=== PATIENT | female | born 1995 | race Caucasian/White ===

== ENCOUNTER 2022-04-30 21:46 | Emergency (ER) | payer BC ==
[~2022-04-30] VITALS: Ht 160 cm; Wt 83.0 kg
[2022-04-30 21:49] VITALS: BP_SYST 146
--- NOTE | 2022-04-30 21:52 | NUR ---
PATIENT ZOYA FROM HOME FOR ABDOMINAL PAIN X 1 DAY, SEEN AT [facility] YESTERDAY AND DISCHARGED WITH NO DIAGNOSIS. STATES THIS HAPPENS WHEN SHE'S ON HER PERIOD (LMP 04/29), HAS A HISTORY OF ENDOMETRIOSIS. NO N/V/D.
--- NOTE | 2022-04-30 21:53 | NUR ---
PATIENT PLACED IN WAITING ROOM WITHOUT ANY SIGNS OF DISTRESS OR ISSUES.
--- NOTE | 2022-04-30 21:55 | NUR ---
PATIENT SEEN AMBULATING WITHOUT DIFFICULTY IN WAITING ROOM.
[2022-04-30 22:29] LABS: BASOPHILS % (AUTO) 0.1 % (0.0-2.0); HEMATOCRIT 34.7 % (36-48); HEMOGLOBIN 11.9 g/dL (12.0-16.0); LYMPHOCYTES % (AUTO) 8.4 % (20.5-51.5); MEAN CORPUSCULAR HEMOGLOBIN 26 pg (27-31); MEAN CORPUSCULAR HGB CONC 34 % (32-36); MEAN CORPUSCULAR VOLUME 76 fL (79.0-98.0); MONOCYTES # (AUTO) 0.2 K/uL (0.0-1.0); MONOCYTES % (AUTO) 1.7 % (1.7-9.3); NEUTROPHILS # (AUTO) 10.7 K/uL (1.8-7.7); NEUTROPHILS % (AUTO) 89.8 % (40.0-70.0); PLATELET COUNT (AUTO) 416 K/uL (130-430); RED CELL DISTRIBUTION WIDTH 15.3 % (9.0-15.0); WHITE BLOOD COUNT (AUTO) 11.9 K/uL (4.8-10.8)
[2022-04-30 22:40] LABS: CALCIUM 9.6 mg/dL (8.4-11.0); CREATININE 0.91 mg/dL (0.55-1.30); POTASSIUM 3.4 mmol/L (3.5-5.1)
[2022-04-30 22:50] LABS: ALBUMIN 3.7 g/dL (3.4-4.8); TOTAL BILIRUBIN 0.2 mg/dL (0.0-1.0)
[2022-05-01] MEDS ORDERED: MORPHINE 4 MG INJ. 4 MG/ML VIAL IVP ONE
[2022-05-01] MEDS ORDERED: ONDANSETRON 4 MG ODT TAB PO ONE
--- NOTE | 2022-05-01 | NUR ---
RECD CARE FOR PT IN 4 S/B DR. AL FOR PAIN MANAGEMENT. 0015 IV MEDS GIVEN IM MORPHINE 6 MG AT LT GLUTEUS PASHA, TAB ZOFRAN 8 MG PO GIVEN. HOOKED TO MONITOR ADVISED TO STAY IN [facility] AND CALL FOR HELP IF NEEDED.
[2022-05-01 01:24] LABS: BILIRUBIN,URINE NEGATIVE (NEGATIVE); BLOOD, URINE 3+ (NEGATIVE); COLOR,URINE YELLOW (YELLOW); GLUCOSE,URINE NEGATIVE (NEGATIVE); KETONES,URINE 3+ (NEGATIVE); LEUKOCYTE ESTERASE ,URINE NEGATIVE (NEGATIVE); NITRITE, URINE NEGATIVE (NEGATIVE); PROTEIN URINE 1+ (NEGATIVE); UROBILINOGEN,URINE 0.2 (0.2-1.0)
[2022-05-01 01:30] LABS: CLARITY/URINE HAZY (CLEAR)
[2022-05-01 01:56] LABS: RBC,URINE 20-50 /HPF (0-3)
[2022-05-01 01:57] LABS: BACTERIA,URINE FEW /HPF (None Seen); MUCUS,URINE 2+ /LPF (None Seen); WBC,URINE 0-3 /HPF (0-3)
--- NOTE | 2022-05-01 02:00 | NUR ---
RE-EVALUATED BY DR. AL PT C/O MILD ABD PAIN WITH ORDERS MADE AND CARRIED OUT.
[2022-05-01] MEDS ORDERED: METOCLOPRAMIDE HCL 10 MG/2 ML VIAL IM ONE (02:15)
[2022-05-01] MEDS ORDERED: DIPHENHYDRAMINE HCL 25 MG CAPSULE PO ONE (02:15)
[2022-05-01] MEDS ORDERED: HYDR-3917 PO (02:35)
[2022-05-01] MEDS ORDERED: ONDA-8 TL (02:35)
[2022-05-01] MEDS ORDERED: IBUP-1971 PO (02:35)
--- NOTE | 2022-05-01 02:45 | NUR ---
Patient given written and verbal discharge instructions and verbalizes understanding. ER MD DR AL discussed with patient the results and treatment provided. Patient in stable condition. ID arm band removed. Rx given. Patient educated on pain management and to follow up with PMD. Pain Scale 0. Opportunity for questions provided and answered. Medication side effect fact sheet provided.
[2022-05-01 02:47] VITALS: BP_SYST 128
== END 2022-05-01 02:47 | disposition home or self-care (01) ==
LOC: SED 21:46
DX: R10.84 Generalized abdominal pain (principal); Z79.899 Other long term (current) drug therapy
CPT/HCPCS: 99284; 80053; 81000; 84702; 83690; 85025; 36415; 96372; Q0163; Q0162; J2765; J2270